=== PATIENT | male | born 1965 | race Caucasian/White ===

== ENCOUNTER 2020-05-25 13:37 | Inpatient (IN) | payer OTHER ==
[2020-05-25] MEDS ORDERED: DEXAMETHASONE SOD PHOSPHATE 4 MG/1 ML VIAL IVPUSH ONE (14:01)
[2020-05-25] MEDS ORDERED: LACTATED RINGERS SOLUTION 1000 ML INFUS.BAG IV STA (14:01)
[2020-05-25] MEDS ORDERED: ACETAMINOPHEN 1000 MG/100 ML VIAL (NON FORMULARY) IVPB ONE (14:23)
[2020-05-25] MEDS ORDERED: ACETAMINOPHEN INJECTION 100 ML IVPB ONE (14:29)
[2020-05-25 15:01] LABS: VENOUS BASE EXCESS 0.4 mmol/L (-2-2); VENOUS O2 SATURATION 92.2 % (70-80); VENOUS PCO2 27.6 mmHg (38-52); VENOUS PH 7.513 (7.310-7.410)
[2020-05-25 15:02] LABS: BASO % 0.7 % (0-2.0); EOS % 0.3 % (0-4.5); HEMATOCRIT 43.5 % (35.4-49); HEMOGLOBIN 15.7 GM/dL (11.7-16.9); LYMPH % 2.4 % (8-40); MCH 30.6 pg (25.7-33.7); MCHC 36.1 g/dl (32.0-35.9); MEAN CELL VOLUME 84.8 fl (80-96); MEAN PLT VOLUME 8.1 fl (7.5-11.1); MONO % 1.7 % (3.8-10.2); NEUT % 94.9 % (42.8-82.8); PLATELET COUNT 363 K/MM3 (134-434); RBC 5.12 M/mm3 (4.00-5.60); RDW 13.1 % (11.9-15.9)
[2020-05-25 15:14] LABS: INR 1.34 (0.83-1.09); PROTHROMBIN TIME (PATIENT) 16.1 SEC (9.7-13.0)
[2020-05-25 15:17] LABS: ACTIVATED PTT 29.9 SECONDS (25.2-36.5)
[2020-05-25 15:20] LABS: CHLORIDE 94 mmol/L (98-107); SODIUM 130 mmol/L (136-145)
[2020-05-25 15:22] LABS: CALCIUM 8.4 mg/dL (8.5-10.1)
[2020-05-25 15:23] LABS: ALBUMIN 2.4 g/dl (3.4-5.0); ANION GAP 12 MMOL/L (8-16); BLOOD UREA NITROGEN 8.5 mg/dL (7-18); CO2 24 mmol/L (21-32); GLUCOSE,RANDOM 180 mg/dL (74-106)
[2020-05-25 15:25] LABS: BILIRUBIN,DIRECT 0.8 mg/dL (0.0-0.2)
[2020-05-25 15:26] LABS: CREATININE 0.8 mg/dL (0.55-1.3); SGOT/AST 147 U/L (15-37); SGPT/ALT 83 U/L (13-61)
[2020-05-25 15:27] LABS: BILIRUBIN,TOTAL 1.5 mg/dL (0.2-1)
[2020-05-25 15:29] LABS: ALK PHOS 153 U/L (45-117)
[2020-05-25] MEDS ORDERED: ENOXAPARIN NA (PORCINE) 80 MG/0.8 ML DISP.SYRIN SQ ONE ×2 (15:35→15:43)
[2020-05-25] MEDS ORDERED: AZITHROMYCIN IVPB 500 MG in DEXTROSE 5%-WATER - 250 ML IVPB ONE (15:43)
[2020-05-25] MEDS ORDERED: CEFTRIAXONE 1 GM in DEXTROSE 5%-WATER - 50 ML IVPB ONE (15:43)
[2020-05-25 15:44] LABS: LDH 1202 U/L (87-246)
[2020-05-25 15:44] LABS: LACTIC ACID 3.4 mmol/L (0.4-2.0)
[2020-05-25] MEDS: LACTATED RINGERS SOLUTION 1,000 ML/1,000 ML INFUS.BAG IV SCH (15:50)
[2020-05-25 16:06] LABS: ANISOCYTOSIS 0; MACROCYTOSIS 0; OVALOCYTE 1+; PLATELET ESTIMATE NORMAL
[2020-05-25] MEDS ORDERED: CEFTRIAXONE 1 GM/50 ML BAG ONE (16:27)
[2020-05-25] MEDS ORDERED: AZITHROMYCIN IVPB 500 MG/250 ML BAG IVPB ONE (16:27)
[2020-05-25] MEDS ORDERED: ONDANSETRON 4 MG/2 ML VIAL IVPUSH PRN (17:53)
[2020-05-25] MEDS: ASCORBIC ACID 500 MG TABLET (FP) PO SCH (21:22)
[2020-05-25] MEDS: ZINC SULFATE 220 MG CAPSULE (FP) PO SCH (21:22)
[2020-05-25 21:29] LABS: EPI CELLS 19 /uL (0-25.1); HYALINE CASTS 0 /uL (0-3.1); PH,URINE 6.5 (5.0-8.0); URINE APPEARANCE CLEAR; URINE BACTERIA 119 /uL (0-1359); URINE BILIRUBIN NEGATIVE (NEGATIVE); URINE COLOR YELLOW; URINE GLUCOSE (UA) 1+ (NEGATIVE); URINE KETONE TRACE (NEGATIVE); URINE LEUK ESTERASE NEGATIVE (NEGATIVE); URINE NITRITE NEGATIVE (NEGATIVE); URINE PROTEIN 1+ (NEGATIVE); URINE RBC 14 /uL (0-23.9); URINE WBC 5 /uL (0-25.8)
[2020-05-26] MEDS: LACTATED RINGERS SOLUTION 1,000 ML/1,000 ML INFUS.BAG IV SCH ×2 (04:49→21:49)
[2020-05-26 06:54] LABS: HEMATOCRIT 35.8 % (35.4-49); HEMOGLOBIN 12.9 GM/dL (11.7-16.9); MCH 30.4 pg (25.7-33.7); MEAN CELL VOLUME 84.4 fl (80-96); MEAN PLT VOLUME 8.1 fl (7.5-11.1); PLATELET COUNT 317 K/MM3 (134-434); RBC 4.24 M/mm3 (4.00-5.60); WHITE BLOOD COUNT 9.1 K/mm3 (4.0-10.0)
[2020-05-26 07:20] LABS: BLOOD UREA NITROGEN 11.7 mg/dL (7-18)
[2020-05-26 07:22] LABS: CREATININE 0.5 mg/dL (0.55-1.3)
[2020-05-26] MEDS ORDERED: DEXTROSE 5%-WATER - 50 ML IVPB ONE (09:32)
[2020-05-26] MEDS ORDERED: cefTRIAXone SODIUM 1 GM VIAL ONE (09:32)
[2020-05-26] MEDS: CHOLECALCIFEROL (VIT D3) 1,000 UNIT (25 MCG) TABLET PO SCH (09:35)
[2020-05-26] MEDS: ASCORBIC ACID 500 MG TABLET (FP) PO SCH ×2 (09:35→21:48)
[2020-05-26] MEDS: ZINC SULFATE 220 MG CAPSULE (FP) PO SCH ×2 (09:35→21:48)
[2020-05-26] MEDS: CEFTRIAXONE 1 GM in DEXTROSE 5%-WATER - 50 ML IVPB SCH (09:36)
[2020-05-26] MEDS ORDERED: ENOXAPARIN NA (PORCINE) 80 MG/0.8 ML DISP.SYRIN SQ SCH (10:00)
[2020-05-26] MEDS ORDERED: ASCORBIC ACID 500 MG TABLET (FP) PO SCH (10:00)
[2020-05-26] MEDS ORDERED: AZITHROMYCIN IVPB 500 MG/250 ML BAG IVPB SCH (10:00)
[2020-05-26] MEDS ORDERED: MELATONIN 5 MG TABLETS PO PRN (10:17)
[2020-05-26 11:54] LABS: LACTIC ACID 2.7 mmol/L (0.4-2.0)
[2020-05-26] MEDS: DEXAMETHASONE SOD PHOSPHATE 4 MG/1 ML VIAL IVPUSH SCH (12:42)
[2020-05-26] MEDS ORDERED: TOCILIZUMAB (ACTEMRA) 200 MG/10 ML VIAL IVPB ONE (12:45)
[2020-05-26] MEDS ORDERED: TOCILIZUMAB 700 MG in SODIUM CHLORIDE 65 ML IVPB ONE (13:30)
[2020-05-26] MEDS: ENOXAPARIN NA (PORCINE) 100 MG/1 ML DISP.SYRIN SQ SCH (21:48)
[2020-05-27] MEDS: LACTATED RINGERS SOLUTION 1,000 ML/1,000 ML INFUS.BAG IV SCH (05:28)
[2020-05-27 08:09] LABS: CALCIUM 7.7 mg/dL (8.5-10.1)
[2020-05-27 08:10] LABS: MAGNESIUM 1.9 mg/dL (1.8-2.4)
[2020-05-27 08:12] LABS: CREATININE 0.5 mg/dL (0.55-1.3)
[2020-05-27 08:14] LABS: BILIRUBIN,TOTAL 0.6 mg/dL (0.2-1); TOT PROT 5.3 g/dl (6.4-8.2)
[2020-05-27 08:18] LABS: BASO % 0.3 % (0-2.0); EOS % 0.1 % (0-4.5); HEMATOCRIT 34.8 % (35.4-49); HEMOGLOBIN 12.6 GM/dL (11.7-16.9); LYMPH % 4.7 % (8-40); MCH 30.5 pg (25.7-33.7); MCHC 36.3 g/dl (32.0-35.9); MEAN PLT VOLUME 8.1 fl (7.5-11.1); MONO % 1.4 % (3.8-10.2); NEUT % 93.5 % (42.8-82.8); PLATELET COUNT 346 K/MM3 (134-434); RBC 4.15 M/mm3 (4.00-5.60); RDW 13.1 % (11.9-15.9); WHITE BLOOD COUNT 7.2 K/mm3 (4.0-10.0)
[2020-05-27 08:31] LABS: ALBUMIN 1.8 g/dl (3.4-5.0)
[2020-05-27] MEDS ORDERED: DEXTROSE 5%-WATER - 50 ML IVPB ONE (08:53)
[2020-05-27] MEDS ORDERED: cefTRIAXone SODIUM 1 GM VIAL ONE (08:53)
[2020-05-27] MEDS: CEFTRIAXONE 1 GM in DEXTROSE 5%-WATER - 50 ML IVPB SCH (09:00)
[2020-05-27] MEDS: ZINC SULFATE 220 MG CAPSULE (FP) PO SCH ×2 (09:01→21:25)
[2020-05-27] MEDS: CHOLECALCIFEROL (VIT D3) 1,000 UNIT (25 MCG) TABLET PO SCH (09:01)
[2020-05-27] MEDS: DEXAMETHASONE SOD PHOSPHATE 4 MG/1 ML VIAL IVPUSH SCH (09:01)
[2020-05-27] MEDS: ASCORBIC ACID 500 MG TABLET (FP) PO SCH ×2 (09:01→21:25)
[2020-05-27] MEDS: ENOXAPARIN NA (PORCINE) 100 MG/1 ML DISP.SYRIN SQ SCH ×2 (09:02→21:25)
[2020-05-27 09:35] LABS: ANISOCYTOSIS 2+; MACROCYTOSIS 0; PLATELET ESTIMATE NORMAL
[2020-05-27 12:34] LABS: LACTIC ACID 2.1 mmol/L (0.4-2.0)
[2020-05-27] MEDS: INSULIN SLIDING SCALE (NOVOLOG) 1 VIAL SQ SCH (21:25)
[2020-05-27] MEDS ORDERED: MELATONIN 5 MG TABLETS PO ONE (23:20)
[2020-05-28] MEDS: INSULIN SLIDING SCALE (NOVOLOG) 1 VIAL SQ SCH ×4 (06:42→21:14)
[2020-05-28] MEDS: ENOXAPARIN NA (PORCINE) 100 MG/1 ML DISP.SYRIN SQ SCH ×2 (09:00→21:08)
[2020-05-28] MEDS: DEXAMETHASONE SOD PHOSPHATE 4 MG/1 ML VIAL IVPUSH SCH (09:00)
[2020-05-28 09:13] LABS: BASO % 0.1 % (0-2.0); EOS % 4.3 % (0-4.5); HEMATOCRIT 41.8 % (35.4-49); HEMOGLOBIN 14.9 GM/dL (11.7-16.9); LYMPH % 5.6 % (8-40); MCH 30.5 pg (25.7-33.7); MCHC 35.7 g/dl (32.0-35.9); MEAN CELL VOLUME 85.4 fl (80-96); MEAN PLT VOLUME 7.6 fl (7.5-11.1); MONO % 0.9 % (3.8-10.2); NEUT % 89.1 % (42.8-82.8); PLATELET COUNT 380 K/MM3 (134-434); RDW 12.7 % (11.9-15.9); WHITE BLOOD COUNT 7.9 K/mm3 (4.0-10.0)
[2020-05-28 09:45] LABS: ALBUMIN 2.1 g/dl (3.4-5.0); CALCIUM 8.3 mg/dL (8.5-10.1); MAGNESIUM 1.7 mg/dL (1.8-2.4)
[2020-05-28 09:46] LABS: BLOOD UREA NITROGEN 8.8 mg/dL (7-18)
[2020-05-28 09:48] LABS: CREATININE 0.5 mg/dL (0.55-1.3)
[2020-05-28] MEDS ORDERED: ALBUTEROL SO4 0.5 % INH SOLN 2.5 MG/0.5 ML VIAL.NEB. NEB ONE (09:48)
[2020-05-28 09:50] LABS: BILIRUBIN,TOTAL 0.6 mg/dL (0.2-1); TOT PROT 6.2 g/dl (6.4-8.2)
[2020-05-28] MEDS ORDERED: MAGNESIUM SULF 50% (8.12 MEQ/2 ML-1 GM VIAL) IVPB ONE (09:51)
[2020-05-28 09:55] LABS: LACTIC ACID 2.8 mmol/L (0.4-2.0)
[2020-05-28] MEDS: ZINC SULFATE 220 MG CAPSULE (FP) PO SCH (10:31)
[2020-05-28] MEDS: ASCORBIC ACID 500 MG TABLET (FP) PO SCH ×2 (10:31→21:27)
[2020-05-28] MEDS: CHOLECALCIFEROL (VIT D3) 1,000 UNIT (25 MCG) TABLET PO SCH (10:31)
[2020-05-28] MEDS ORDERED: MORPHINE SULFATE 2 MG/ML VIAL ONE (10:57)
[2020-05-28] MEDS ORDERED: cefTRIAXone SODIUM 1 GM VIAL ONE ×2 (11:10→11:27)
[2020-05-28] MEDS ORDERED: DEXTROSE 5%-WATER - 50 ML IVPB ONE ×2 (11:10→11:28)
[2020-05-28] MEDS: FAMOTIDINE 20 MG/50 ML IVPB 20 MG/50 ML MG IVPB SCH ×2 (11:23→21:08)
[2020-05-28] MEDS ORDERED: DEXAMETHASONE SOD PHOSPHATE 4 MG/1 ML VIAL IVPUSH ONE (11:30)
[2020-05-28] MEDS ORDERED: MORPHINE SULFATE 2 MG/ML VIAL IVPUSH ONE (11:30)
[2020-05-28] MEDS: CEFTRIAXONE 1 GM in DEXTROSE 5%-WATER - 50 ML IVPB SCH (11:31)
[2020-05-28] MEDS: BUDESONIDE 0.5 MG/2 ML INH SUSP VIAL NEB SCH ×2 (12:57→20:45)
[2020-05-28] MEDS: ALBUTEROL SO4 2.5/IPRATROPIUM 0.5 INH SOL 3 ML VIAL.NEB. NEB SCH ×4 (12:58→20:45)
[2020-05-28] MEDS ORDERED: AMINO ACIDS 4.25%/D5W 1,000 ML IV SCH (16:30)
[2020-05-28] MEDS: DEXMEDETOMIDINE IN 0.9 % NACL 400 MCG/100 ML VIAL IVPB SCH (17:06)
[2020-05-28 18:23] LABS: ARTERIAL BLD GAS O2 SATURATION 94.8 mmHg (95-98); ARTERIAL BLOOD GAS PO2 71.2 mmHg (80-100); ARTERIAL BLOOD GAS pH 7.423 (7.350-7.450)
[2020-05-28 18:24] LABS: ALLENS TEST POSITIVE
[2020-05-28 18:25] LABS: VENT MODE S/T; VENT RATE 22
[2020-05-29] MEDS: DEXMEDETOMIDINE IN 0.9 % NACL 400 MCG/100 ML VIAL IVPB SCH ×2 (04:38→15:45)
[2020-05-29] MEDS: INSULIN SLIDING SCALE (NOVOLOG) 1 VIAL SQ SCH ×4 (06:12→21:30)
[2020-05-29 07:23] LABS: HEMATOCRIT 41.6 % (35.4-49); HEMOGLOBIN 14.5 GM/dL (11.7-16.9); MCHC 34.9 g/dl (32.0-35.9); MEAN CELL VOLUME 85.9 fl (80-96); MEAN PLT VOLUME 8.2 fl (7.5-11.1); PLATELET COUNT 278 K/MM3 (134-434); RBC 4.84 M/mm3 (4.00-5.60); RDW 13.2 % (11.9-15.9); WHITE BLOOD COUNT 5.5 K/mm3 (4.0-10.0)
[2020-05-29 07:33] LABS: PHOSPHOROUS 2.6 mg/dL (2.5-4.9)
[2020-05-29 07:37] LABS: CALCIUM 8.3 mg/dL (8.5-10.1)
[2020-05-29 07:38] LABS: ALBUMIN 2.1 g/dl (3.4-5.0); BLOOD UREA NITROGEN 14.6 mg/dL (7-18); MAGNESIUM 2.2 mg/dL (1.8-2.4)
[2020-05-29 07:41] LABS: CREATININE 0.6 mg/dL (0.55-1.3)
[2020-05-29 07:43] LABS: BILIRUBIN,TOTAL 0.4 mg/dL (0.2-1); TOT PROT 5.7 g/dl (6.4-8.2)
[2020-05-29] MEDS: ALBUTEROL SO4 2.5/IPRATROPIUM 0.5 INH SOL 3 ML VIAL.NEB. NEB SCH ×5 (08:00→23:51)
[2020-05-29] MEDS: BUDESONIDE 0.5 MG/2 ML INH SUSP VIAL NEB SCH ×2 (08:00→20:30)
[2020-05-29] MEDS ORDERED: cefTRIAXone SODIUM 1 GM VIAL ONE (08:56)
[2020-05-29] MEDS ORDERED: DEXTROSE 5%-WATER - 50 ML IVPB ONE (08:57)
[2020-05-29] MEDS: CEFTRIAXONE 1 GM in DEXTROSE 5%-WATER - 50 ML IVPB SCH (09:10)
[2020-05-29] MEDS: CHOLECALCIFEROL (VIT D3) 1,000 UNIT (25 MCG) TABLET PO SCH (09:10)
[2020-05-29] MEDS: ASCORBIC ACID 500 MG TABLET (FP) PO SCH ×2 (09:10→21:30)
[2020-05-29] MEDS: DEXAMETHASONE SOD PHOSPHATE 4 MG/1 ML VIAL IVPUSH SCH (09:10)
[2020-05-29] MEDS: FAMOTIDINE 20 MG/50 ML IVPB 20 MG/50 ML MG IVPB SCH ×2 (09:10→21:30)
[2020-05-29] MEDS: ENOXAPARIN NA (PORCINE) 100 MG/1 ML DISP.SYRIN SQ SCH ×2 (09:10→21:30)
[2020-05-29 10:27] LABS: PLATELET ESTIMATE NORMAL
[2020-05-29] MEDS ORDERED: MULTIVIT INJECTION ADULT 10 ML in AMINO ACIDS 4.25%/D5W 1,000 ML IV SCH (13:01)
[2020-05-29] MEDS ORDERED: PT OWN MED DRAWER 7, Y5N ONE ×2 (15:24→21:11)
[2020-05-29] MEDS: AMINO ACIDS 4.25%/D5W 1,000 ML IV SCH (15:43)
[2020-05-29] MEDS: MULTIVIT INJ. ADULT COMBO WITH VIT K 1 COMBO 10 ML VIAL IV SCH (15:44)
[2020-05-30] MEDS: ALBUTEROL SO4 2.5/IPRATROPIUM 0.5 INH SOL 3 ML VIAL.NEB. NEB SCH ×5 (04:30→20:43)
[2020-05-30] MEDS: INSULIN SLIDING SCALE (NOVOLOG) 1 VIAL SQ SCH ×4 (06:15→23:46)
[2020-05-30 07:11] LABS: BASO % 0.1 % (0-2.0); EOS % 5.8 % (0-4.5); HEMATOCRIT 41.9 % (35.4-49); HEMOGLOBIN 14.8 GM/dL (11.7-16.9); LYMPH % 6.7 % (8-40); MCH 30.6 pg (25.7-33.7); MCHC 35.3 g/dl (32.0-35.9); MEAN CELL VOLUME 86.8 fl (80-96); MEAN PLT VOLUME 8.8 fl (7.5-11.1); MONO % 1.8 % (3.8-10.2); NEUT % 85.6 % (42.8-82.8); PLATELET COUNT 246 K/MM3 (134-434); RBC 4.83 M/mm3 (4.00-5.60); RDW 13.3 % (11.9-15.9); WHITE BLOOD COUNT 6.5 K/mm3 (4.0-10.0)
[2020-05-30] MEDS: BUDESONIDE 0.5 MG/2 ML INH SUSP VIAL NEB SCH ×2 (07:20→20:43)
[2020-05-30 07:29] LABS: BLOOD UREA NITROGEN 16.5 mg/dL (7-18); CALCIUM 8.2 mg/dL (8.5-10.1); MAGNESIUM 1.7 mg/dL (1.8-2.4)
[2020-05-30 07:30] LABS: ALBUMIN 2.1 g/dl (3.4-5.0)
[2020-05-30 07:33] LABS: CREATININE 0.5 mg/dL (0.55-1.3)
[2020-05-30 07:34] LABS: BILIRUBIN,TOTAL 0.4 mg/dL (0.2-1); TOT PROT 5.7 g/dl (6.4-8.2)
[2020-05-30 07:36] LABS: PHOSPHOROUS 2.6 mg/dL (2.5-4.9)
[2020-05-30] MEDS ORDERED: PT OWN MED DRAWER 7, Y5N ONE ×3 (08:58→21:01)
[2020-05-30] MEDS ORDERED: cefTRIAXone SODIUM 1 GM VIAL ONE (08:59)
[2020-05-30] MEDS ORDERED: DEXTROSE 5%-WATER - 50 ML IVPB ONE (08:59)
[2020-05-30] MEDS: ENOXAPARIN NA (PORCINE) 100 MG/1 ML DISP.SYRIN SQ SCH ×2 (09:20→23:46)
[2020-05-30] MEDS: CEFTRIAXONE 1 GM in DEXTROSE 5%-WATER - 50 ML IVPB SCH (09:21)
[2020-05-30] MEDS: FAMOTIDINE 20 MG/50 ML IVPB 20 MG/50 ML MG IVPB SCH ×2 (09:22→23:47)
[2020-05-30] MEDS: CHOLECALCIFEROL (VIT D3) 1,000 UNIT (25 MCG) TABLET PO SCH (09:23)
[2020-05-30] MEDS: ASCORBIC ACID 500 MG TABLET (FP) PO SCH ×2 (09:23→23:47)
[2020-05-30] MEDS: DEXAMETHASONE SOD PHOSPHATE 4 MG/1 ML VIAL IVPUSH SCH (09:23)
[2020-05-30] MEDS: AMINO ACIDS 4.25%/D5W 1,000 ML IV SCH (16:22)
[2020-05-30] MEDS: MULTIVIT INJ. ADULT COMBO WITH VIT K 1 COMBO 10 ML VIAL IV SCH (16:22)
[2020-05-30] MEDS: DEXMEDETOMIDINE IN 0.9 % NACL 400 MCG/100 ML VIAL IVPB SCH (16:22)
[2020-05-30] MEDS: MORPHINE SULFATE 2 MG/ML VIAL IVPUSH PRN (23:47)
[2020-05-31] MEDS ORDERED: VECURONIUM BROMIDE 10 MG/10 ML VIAL ONE (02:30)
[2020-05-31] MEDS ORDERED: INSULIN (NOVOLOG) ASPART 100 UNITS/ML 10ML VIAL ONE (03:06)
[2020-05-31] MEDS: INSULIN SLIDING SCALE (NOVOLOG) 1 VIAL SQ SCH ×4 (06:46→22:07)
[2020-05-31] MEDS: MORPHINE SULFATE 2 MG/ML VIAL IVPUSH PRN (07:01)
[2020-05-31] MEDS: BUDESONIDE 0.5 MG/2 ML INH SUSP VIAL NEB SCH ×2 (07:40→20:00)
[2020-05-31] MEDS: ALBUTEROL SO4 2.5/IPRATROPIUM 0.5 INH SOL 3 ML VIAL.NEB. NEB SCH ×2 (07:40→20:00)
[2020-05-31 08:10] LABS: BASO % 0.9 % (0-2.0); HEMOGLOBIN 15.1 GM/dL (11.7-16.9); LYMPH % 3.8 % (8-40); MCH 30.7 pg (25.7-33.7); MCHC 35.2 g/dl (32.0-35.9); MEAN CELL VOLUME 87.4 fl (80-96); MONO % 1.3 % (3.8-10.2); PLATELET COUNT 216 K/MM3 (134-434); RBC 4.92 M/mm3 (4.00-5.60); RDW 13.4 % (11.9-15.9); WHITE BLOOD COUNT 7.9 K/mm3 (4.0-10.0)
[2020-05-31 08:21] LABS: ALBUMIN 2.2 g/dl (3.4-5.0); BILIRUBIN,TOTAL 0.4 mg/dL (0.2-1); BLOOD UREA NITROGEN 19.4 mg/dL (7-18); CALCIUM 8.3 mg/dL (8.5-10.1)
[2020-05-31 08:22] LABS: MAGNESIUM 1.9 mg/dL (1.8-2.4); TOT PROT 5.6 g/dl (6.4-8.2)
[2020-05-31 08:23] LABS: CREATININE 0.5 mg/dL (0.55-1.3)
[2020-05-31 08:24] LABS: PHOSPHOROUS 2.4 mg/dL (2.5-4.9)
[2020-05-31 08:51] LABS: ARTERIAL BLD GAS O2 SATURATION 84.2 mmHg (95-98); ARTERIAL BLOOD GAS BASE EXCESS -1.3 mmol/L (-2-2); ARTERIAL BLOOD GAS PO2 48.2 mmHg (80-100); ARTERIAL BLOOD GAS pH 7.401 (7.350-7.450)
[2020-05-31 09:03] LABS: ALLENS TEST POSITIVE
[2020-05-31 09:04] LABS: VENT MODE ST; VENT RATE 22
[2020-05-31] MEDS: ENOXAPARIN NA (PORCINE) 100 MG/1 ML DISP.SYRIN SQ SCH ×2 (09:51→21:35)
[2020-05-31] MEDS: ASCORBIC ACID 500 MG TABLET (FP) PO SCH ×2 (09:52→21:33)
[2020-05-31] MEDS: CHOLECALCIFEROL (VIT D3) 1,000 UNIT (25 MCG) TABLET PO SCH (09:52)
[2020-05-31] MEDS: FAMOTIDINE 20 MG/50 ML IVPB 20 MG/50 ML MG IVPB SCH ×2 (09:52→21:33)
[2020-05-31] MEDS: DEXAMETHASONE SOD PHOSPHATE 4 MG/1 ML VIAL IVPUSH SCH (09:52)
[2020-05-31 11:37] LABS: ANISOCYTOSIS 0; MACROCYTOSIS 0; PLATELET ESTIMATE NORMAL
[2020-05-31] MEDS ORDERED: PT OWN MED DRAWER 7, Y5N ONE ×2 (13:51→15:00)
[2020-05-31] MEDS: AMINO ACIDS 4.25%/D5W 1,000 ML IV SCH (15:05)
[2020-05-31] MEDS: DEXMEDETOMIDINE IN 0.9 % NACL 400 MCG/100 ML VIAL IVPB SCH (15:06)
[2020-05-31] MEDS: MULTIVIT INJ. ADULT COMBO WITH VIT K 1 COMBO 10 ML VIAL IV SCH (15:06)
[2020-05-31] MEDS ORDERED: guaiFENesin/D-M SUGAR-FREE/ACLHOL-FREE 118 ML BOTTLE PO PRN (21:25)
[2020-05-31] MEDS ORDERED: BENZOCAINE/MENTH/CETYLPYRD CL 1 EACH LOZENGE MM PRN (21:25)
[2020-05-31] MEDS: ZINC SULFATE 220 MG CAPSULE (FP) PO SCH (21:34)
[2020-05-31] MEDS: ACETAMINOPHEN 325 MG TABLET (FP) PO PRN (21:34)
[2020-06-01] MEDS: ALBUTEROL SO4 2.5/IPRATROPIUM 0.5 INH SOL 3 ML VIAL.NEB. NEB SCH ×3 (00:30→23:40)
[2020-06-01] MEDS: INSULIN SLIDING SCALE (NOVOLOG) 1 VIAL SQ SCH ×4 (06:38→21:14)
[2020-06-01] MEDS ORDERED: INSULIN SLIDING SCALE (NOVOLOG) 1 VIAL SQ SCH (07:00)
[2020-06-01] MEDS: DEXAMETHASONE SOD PHOSPHATE 4 MG/1 ML VIAL IVPUSH SCH (09:37)
[2020-06-01] MEDS: ENOXAPARIN NA (PORCINE) 100 MG/1 ML DISP.SYRIN SQ SCH ×2 (09:37→21:14)
[2020-06-01] MEDS: ZINC SULFATE 220 MG CAPSULE (FP) PO SCH ×2 (09:38→21:14)
[2020-06-01] MEDS: ASCORBIC ACID 500 MG TABLET (FP) PO SCH ×2 (09:39→21:14)
[2020-06-01] MEDS: FAMOTIDINE 20 MG/50 ML IVPB 20 MG/50 ML MG IVPB SCH ×2 (09:39→21:14)
[2020-06-01] MEDS: CHOLECALCIFEROL (VIT D3) 1,000 UNIT (25 MCG) TABLET PO SCH (09:39)
[2020-06-01] MEDS ORDERED: morphine SULFATE 4 MG/ML VIAL IVPUSH PRN (11:23)
[2020-06-01] MEDS: DEXMEDETOMIDINE IN 0.9 % NACL 400 MCG/100 ML VIAL IVPB SCH ×2 (13:00→17:56)
[2020-06-01] MEDS ORDERED: KETAMINE HCL 200 MG/20 ML VIAL IVPUSH ONE (13:58)
[2020-06-01] MEDS ORDERED: RAPID SEQUENCE INTUBATION KIT NR ONE (13:58)
[2020-06-01] MEDS ORDERED: ROCURONIUM BROMIDE 100 MG/10 ML VIAL ONE (14:00)
[2020-06-01] MEDS ORDERED: MIDAZOLAM 100 MG/100 ML MG IVPB ONE ×2 (14:04→21:19)
[2020-06-01] MEDS ORDERED: FENTANYL NS IVPB 500 MCG/100 ML BAG IVPB ONE (14:04)
[2020-06-01] MEDS ORDERED: MIDAZOLAM HCL 5 MG/1 ML Single Dose Vial ONE (14:04)
[2020-06-01] MEDS ORDERED: PHENYLEPHRINE HCL 10 MG/1 ML SINGLE DOSE VIAL ONE (14:05)
[2020-06-01] MEDS ORDERED: MIDAZOLAM HCL 2 MG/2 ML SINGLE DOSE VIAL ONE ×2 (14:08→15:19)
[2020-06-01] MEDS ORDERED: ROCURONIUM BROMIDE 50 MG/5 ML VIAL IV ONE (14:15)
[2020-06-01] MEDS ORDERED: SUCCINYLCHOLINE CHLORIDE 200 MG/10 ML VIAL IVPUSH ONE (14:15)
[2020-06-01] MEDS: FENTANYL IVPB 500 MCG/100 ML BAG IVPB SCH (15:00)
[2020-06-01] MEDS: MIDAZOLAM 100 MG in SODIUM CHLORIDE 100 ML IVPB SCH ×2 (15:00→23:00)
[2020-06-01 16:17] LABS: ARTERIAL BLD GAS O2 SATURATION 90.1 mmHg (95-98); ARTERIAL BLOOD GAS BASE EXCESS -2.4 mmol/L (-2-2); ARTERIAL BLOOD GAS PO2 62.1 mmHg (80-100)
[2020-06-01 16:18] LABS: ALLENS TEST POSITIVE; VENT MODE PC
[2020-06-01 16:19] LABS: VENT RATE 26
[2020-06-01] MEDS ORDERED: NOREPINEPHRINE BITARTRATE 4 MG/4 ML ML IV ONE (16:56)
[2020-06-01] MEDS: NOREPINEPHRINE NS PREMIX 8,000 MCG/500 ML BAG IVPB SCH (17:10)
[2020-06-01] MEDS ORDERED: MIDAZOLAM HCL 10 MG/10 ML VIAL IVPUSH ONE (17:32)
[2020-06-01] MEDS: AMINO ACIDS 4.25%/D5W 1,000 ML IV SCH (17:55)
[2020-06-01] MEDS: MULTIVIT INJ. ADULT COMBO WITH VIT K 1 COMBO 10 ML VIAL IV SCH (17:55)
[2020-06-01] MEDS: VECURONIUM BROMIDE 100 MG/100 ML BAG IVPB SCH (17:57)
[2020-06-01] MEDS: VANCOMYCIN/WATER BAGS 1,250 MG/250 ML BAG IVPB SCH (20:30)
[2020-06-01] MEDS ORDERED: DEXTROSE 5%-WATER 100 ML IVPB ONE (21:20)
[2020-06-01] MEDS: PIPERACILLIN/TAZOB 4.5 GM 4.5 GM in DEXTROSE 5%-WATER 100 ML IVPB SCH (21:20)
[2020-06-01] MEDS ORDERED: PIPERACILLIN/TAZOBACTAM 4.5 GM VIAL IVPB ONE (21:20)
[2020-06-01] MEDS: BUDESONIDE 0.5 MG/2 ML INH SUSP VIAL NEB SCH (23:40)
[2020-06-02] MEDS: FENTANYL IVPB 500 MCG/100 ML BAG IVPB SCH ×3 (01:00→16:28)
[2020-06-02] MEDS ORDERED: DEXTROSE 5%-WATER 100 ML IVPB ONE ×3 (01:05→17:20)
[2020-06-02] MEDS ORDERED: PIPERACILLIN/TAZOBACTAM 4.5 GM VIAL IVPB ONE ×3 (01:05→17:20)
[2020-06-02] MEDS: PIPERACILLIN/TAZOB 4.5 GM 4.5 GM in DEXTROSE 5%-WATER 100 ML IVPB SCH ×3 (01:23→17:29)
[2020-06-02] MEDS: ALBUTEROL SO4 2.5/IPRATROPIUM 0.5 INH SOL 3 ML VIAL.NEB. NEB SCH (03:30)
[2020-06-02] MEDS: INSULIN SLIDING SCALE (NOVOLOG) 1 VIAL SQ SCH ×4 (06:14→22:53)
[2020-06-02 06:26] LABS: ARTERIAL BLD GAS O2 SATURATION 95.1 mmHg (95-98); ARTERIAL BLOOD GAS BASE EXCESS -0.9 mmol/L (-2-2); ARTERIAL BLOOD GAS PO2 81.1 mmHg (80-100); ARTERIAL BLOOD GAS pH 7.329 (7.350-7.450)
[2020-06-02 06:33] LABS: ALLENS TEST POSITIVE
[2020-06-02 06:34] LABS: VENT MODE PC; VENT RATE 26
[2020-06-02 06:56] LABS: HEMATOCRIT 43.5 % (35.4-49); MCH 30.5 pg (25.7-33.7); MCHC 34.5 g/dl (32.0-35.9); MEAN CELL VOLUME 88.5 fl (80-96); MEAN PLT VOLUME 8.8 fl (7.5-11.1); PLATELET COUNT 173 K/MM3 (134-434); RBC 4.92 M/mm3 (4.00-5.60); RDW 13.8 % (11.9-15.9); WHITE BLOOD COUNT 9.1 K/mm3 (4.0-10.0)
[2020-06-02 07:14] LABS: CALCIUM 8.1 mg/dL (8.5-10.1)
[2020-06-02 07:15] LABS: ALBUMIN 2.2 g/dl (3.4-5.0); BLOOD UREA NITROGEN 15.6 mg/dL (7-18); MAGNESIUM 1.8 mg/dL (1.8-2.4)
[2020-06-02 07:18] LABS: CREATININE 0.5 mg/dL (0.55-1.3); PHOSPHOROUS 2.7 mg/dL (2.5-4.9)
[2020-06-02 07:19] LABS: BILIRUBIN,TOTAL 0.7 mg/dL (0.2-1); TOT PROT 5.5 g/dl (6.4-8.2)
[2020-06-02 07:23] LABS: N-TERMINAL BNP 228.4 pg/ml (5-125)
[2020-06-02] MEDS ORDERED: PT OWN MED DRAWER 7, Y5N ONE ×2 (08:26→15:31)
[2020-06-02] MEDS: VECURONIUM BROMIDE 100 MG/100 ML BAG IVPB SCH ×2 (09:24→16:29)
[2020-06-02] MEDS: VANCOMYCIN/WATER BAGS 1,250 MG/250 ML BAG IVPB SCH ×2 (09:24→20:00)
[2020-06-02] MEDS: DEXAMETHASONE SOD PHOSPHATE 4 MG/1 ML VIAL IVPUSH SCH (09:32)
[2020-06-02] MEDS: FAMOTIDINE 20 MG/50 ML IVPB 20 MG/50 ML MG IVPB SCH ×2 (09:32→21:25)
[2020-06-02] MEDS: ENOXAPARIN NA (PORCINE) 100 MG/1 ML DISP.SYRIN SQ SCH ×2 (09:34→21:25)
[2020-06-02] MEDS: CHOLECALCIFEROL (VIT D3) 1,000 UNIT (25 MCG) TABLET PO SCH (09:35)
[2020-06-02] MEDS: ZINC SULFATE 220 MG CAPSULE (FP) PO SCH ×2 (09:35→21:26)
[2020-06-02] MEDS: ASCORBIC ACID 500 MG TABLET (FP) PO SCH ×2 (09:35→21:25)
[2020-06-02] MEDS ORDERED: MIDAZOLAM 100 MG/100 ML MG IVPB ONE ×2 (09:59→19:58)
[2020-06-02] MEDS: MIDAZOLAM 100 MG in SODIUM CHLORIDE 100 ML IVPB SCH ×2 (10:57→16:28)
[2020-06-02] MEDS: AMINO ACIDS 4.25%/D5W 1,000 ML IV SCH (17:26)
[2020-06-02] MEDS: MULTIVIT INJ. ADULT COMBO WITH VIT K 1 COMBO 10 ML VIAL IV SCH (17:27)
[2020-06-02] MEDS: NOREPINEPHRINE NS PREMIX 8,000 MCG/500 ML BAG IVPB SCH (17:29)
[2020-06-03] MEDS ORDERED: DEXTROSE 5%-WATER 100 ML IVPB ONE ×4 (00:20→23:37)
[2020-06-03] MEDS ORDERED: PIPERACILLIN/TAZOBACTAM 4.5 GM VIAL IVPB ONE ×4 (00:20→23:37)
[2020-06-03] MEDS: PIPERACILLIN/TAZOB 4.5 GM 4.5 GM in DEXTROSE 5%-WATER 100 ML IVPB SCH ×3 (01:27→18:10)
[2020-06-03] MEDS ORDERED: MIDAZOLAM 100 MG/100 ML MG IVPB ONE ×2 (05:05→16:51)
[2020-06-03] MEDS: INSULIN SLIDING SCALE (NOVOLOG) 1 VIAL SQ SCH ×4 (06:19→21:17)
[2020-06-03 07:28] LABS: ALBUMIN 2.1 g/dl (3.4-5.0); BLOOD UREA NITROGEN 12.5 mg/dL (7-18); MAGNESIUM 1.8 mg/dL (1.8-2.4)
[2020-06-03 07:31] LABS: CREATININE 0.4 mg/dL (0.55-1.3); PHOSPHOROUS 2.2 mg/dL (2.5-4.9)
[2020-06-03 07:32] LABS: BILIRUBIN,TOTAL 0.7 mg/dL (0.2-1)
[2020-06-03 07:33] LABS: TOT PROT 5.1 g/dl (6.4-8.2)
[2020-06-03] MEDS: VANCOMYCIN/WATER BAGS 1,250 MG/250 ML BAG IVPB SCH ×2 (07:46→21:10)
[2020-06-03] MEDS ORDERED: NAPH,MB-DB/K PH,MBDB POWDER PACKET PO ONE (07:59)
[2020-06-03] MEDS: DEXAMETHASONE SOD PHOSPHATE 4 MG/1 ML VIAL IVPUSH SCH (09:51)
[2020-06-03] MEDS: ASCORBIC ACID 500 MG TABLET (FP) PO SCH ×2 (09:53→21:11)
[2020-06-03] MEDS: ZINC SULFATE 220 MG CAPSULE (FP) PO SCH ×2 (09:53→21:11)
[2020-06-03] MEDS: CHOLECALCIFEROL (VIT D3) 1,000 UNIT (25 MCG) TABLET PO SCH (09:53)
[2020-06-03] MEDS: ENOXAPARIN NA (PORCINE) 100 MG/1 ML DISP.SYRIN SQ SCH ×2 (09:54→21:10)
[2020-06-03] MEDS: FAMOTIDINE 20 MG/50 ML IVPB 20 MG/50 ML MG IVPB SCH ×2 (09:54→21:10)
[2020-06-03 09:57] LABS: HEMATOCRIT 40.1 % (35.4-49); MCH 30.9 pg (25.7-33.7); MCHC 35.1 g/dl (32.0-35.9); MEAN CELL VOLUME 88.2 fl (80-96); MEAN PLT VOLUME 9.1 fl (7.5-11.1); PLATELET COUNT 151 K/MM3 (134-434); RBC 4.54 M/mm3 (4.00-5.60); RDW 13.7 % (11.9-15.9); WHITE BLOOD COUNT 8.5 K/mm3 (4.0-10.0)
[2020-06-03] MEDS ORDERED: AMINO ACIDS 4.25%/D5W 1,000 ML IV SCH (10:45)
[2020-06-03 12:48] LABS: ANISOCYTOSIS 0; MACROCYTOSIS 0; PLATELET ESTIMATE NORMAL
[2020-06-03] MEDS: MULTIVIT INJ. ADULT COMBO WITH VIT K 1 COMBO 10 ML VIAL IV SCH (13:51)
[2020-06-03] MEDS: FENTANYL IVPB 500 MCG/100 ML BAG IVPB SCH ×2 (14:34→20:30)
[2020-06-03] MEDS: MIDAZOLAM 100 MG in SODIUM CHLORIDE 100 ML IVPB SCH (14:36)
[2020-06-03] MEDS: VECURONIUM BROMIDE 100 MG/100 ML BAG IVPB SCH ×2 (15:39→22:00)
[2020-06-03] MEDS: NOREPINEPHRINE NS PREMIX 8,000 MCG/500 ML BAG IVPB SCH (16:21)
[2020-06-04] MEDS ORDERED: MIDAZOLAM 100 MG/100 ML MG IVPB ONE ×3 (00:49→23:57)
[2020-06-04] MEDS: FENTANYL IVPB 500 MCG/100 ML BAG IVPB SCH ×3 (01:01→22:30)
[2020-06-04] MEDS: PIPERACILLIN/TAZOB 4.5 GM 4.5 GM in DEXTROSE 5%-WATER 100 ML IVPB SCH ×3 (01:01→18:37)
[2020-06-04] MEDS: MIDAZOLAM 100 MG in SODIUM CHLORIDE 100 ML IVPB SCH ×2 (01:01→14:41)
[2020-06-04] MEDS: INSULIN SLIDING SCALE (NOVOLOG) 1 VIAL SQ SCH ×4 (06:00→22:05)
[2020-06-04 07:02] LABS: HEMATOCRIT 42.4 % (35.4-49); HEMOGLOBIN 14.9 GM/dL (11.7-16.9); MCH 31.1 pg (25.7-33.7); MCHC 35.2 g/dl (32.0-35.9); MEAN CELL VOLUME 88.3 fl (80-96); MEAN PLT VOLUME 9.6 fl (7.5-11.1); PLATELET COUNT 143 K/MM3 (134-434); RDW 13.4 % (11.9-15.9); WHITE BLOOD COUNT 9.8 K/mm3 (4.0-10.0)
[2020-06-04 07:28] LABS: ALBUMIN 2.2 g/dl (3.4-5.0); BLOOD UREA NITROGEN 13.6 mg/dL (7-18)
[2020-06-04 07:30] LABS: CREATININE 0.4 mg/dL (0.55-1.3)
[2020-06-04 07:31] LABS: BILIRUBIN,TOTAL 0.6 mg/dL (0.2-1); TOT PROT 5.4 g/dl (6.4-8.2)
[2020-06-04] MEDS ORDERED: PT OWN MED DRAWER 7, Y5N ONE ×3 (07:49→21:47)
[2020-06-04] MEDS: VANCOMYCIN/WATER BAGS 1,250 MG/250 ML BAG IVPB SCH ×2 (07:58→21:00)
[2020-06-04] MEDS ORDERED: PIPERACILLIN/TAZOBACTAM 4.5 GM VIAL IVPB ONE ×2 (09:19→17:42)
[2020-06-04] MEDS ORDERED: DEXTROSE 5%-WATER 100 ML IVPB ONE ×2 (09:19→17:42)
[2020-06-04] MEDS: ASCORBIC ACID 500 MG TABLET (FP) PO SCH ×2 (09:40→21:51)
[2020-06-04] MEDS: ZINC SULFATE 220 MG CAPSULE (FP) PO SCH ×2 (09:40→21:51)
[2020-06-04] MEDS: FAMOTIDINE 20 MG/50 ML IVPB 20 MG/50 ML MG IVPB SCH ×2 (09:40→21:52)
[2020-06-04] MEDS: DEXAMETHASONE SOD PHOSPHATE 4 MG/1 ML VIAL IVPUSH SCH (09:40)
[2020-06-04] MEDS: CHOLECALCIFEROL (VIT D3) 1,000 UNIT (25 MCG) TABLET PO SCH (09:40)
[2020-06-04] MEDS: ENOXAPARIN NA (PORCINE) 100 MG/1 ML DISP.SYRIN SQ SCH ×2 (09:41→21:51)
[2020-06-04] MEDS: VECURONIUM BROMIDE 100 MG/100 ML BAG IVPB SCH (16:50)
[2020-06-04] MEDS ORDERED: METOPROLOL TARTRATE 5 MG/5 ML VIAL IVPUSH PRN (17:22)
[2020-06-04] MEDS: NOREPINEPHRINE NS PREMIX 8,000 MCG/500 ML BAG IVPB SCH (18:37)
[2020-06-05] MEDS ORDERED: DEXTROSE 5%-WATER 100 ML IVPB ONE ×4 (00:47→20:50)
[2020-06-05] MEDS ORDERED: PIPERACILLIN/TAZOBACTAM 4.5 GM VIAL IVPB ONE ×4 (00:47→20:50)
[2020-06-05] MEDS: PIPERACILLIN/TAZOB 4.5 GM 4.5 GM in DEXTROSE 5%-WATER 100 ML IVPB SCH ×3 (01:02→18:04)
[2020-06-05] MEDS: METOPROLOL TARTRATE 5 MG/5 ML VIAL IVPUSH PRN ×3 (04:00→18:03)
[2020-06-05] MEDS: FENTANYL IVPB 500 MCG/100 ML BAG IVPB SCH ×5 (05:28→20:59)
[2020-06-05] MEDS: INSULIN SLIDING SCALE (NOVOLOG) 1 VIAL SQ SCH ×4 (06:15→21:55)
[2020-06-05] MEDS ORDERED: PT OWN MED DRAWER 7, Y5N ONE ×2 (07:44→10:01)
[2020-06-05] MEDS: VANCOMYCIN/WATER BAGS 1,250 MG/250 ML BAG IVPB SCH (07:46)
[2020-06-05 08:20] LABS: HEMATOCRIT 46.9 % (35.4-49); HEMOGLOBIN 15.8 GM/dL (11.7-16.9); MCH 30.4 pg (25.7-33.7); MCHC 33.6 g/dl (32.0-35.9); MEAN CELL VOLUME 90.4 fl (80-96); MEAN PLT VOLUME 9.9 fl (7.5-11.1); PLATELET COUNT 152 K/MM3 (134-434); RBC 5.19 M/mm3 (4.00-5.60); RDW 13.9 % (11.9-15.9); WHITE BLOOD COUNT 11.7 K/mm3 (4.0-10.0)
[2020-06-05 08:21] LABS: ALBUMIN 2.4 g/dl (3.4-5.0)
[2020-06-05 08:22] LABS: BLOOD UREA NITROGEN 13.8 mg/dL (7-18); CALCIUM 8.1 mg/dL (8.5-10.1)
[2020-06-05 08:24] LABS: CREATININE 0.4 mg/dL (0.55-1.3)
[2020-06-05 08:25] LABS: BILIRUBIN,TOTAL 0.6 mg/dL (0.2-1); TOT PROT 5.9 g/dl (6.4-8.2)
[2020-06-05] MEDS ORDERED: MIDAZOLAM 100 MG/100 ML MG IVPB ONE ×3 (09:11→23:23)
[2020-06-05] MEDS: DEXAMETHASONE SOD PHOSPHATE 4 MG/1 ML VIAL IVPUSH SCH (09:25)
[2020-06-05] MEDS: ENOXAPARIN NA (PORCINE) 100 MG/1 ML DISP.SYRIN SQ SCH ×2 (09:25→21:01)
[2020-06-05] MEDS: ASCORBIC ACID 500 MG TABLET (FP) PO SCH ×2 (09:26→21:01)
[2020-06-05] MEDS: CHOLECALCIFEROL (VIT D3) 1,000 UNIT (25 MCG) TABLET PO SCH (09:26)
[2020-06-05] MEDS: FAMOTIDINE 20 MG/50 ML IVPB 20 MG/50 ML MG IVPB SCH ×2 (09:26→21:01)
[2020-06-05] MEDS: ZINC SULFATE 220 MG CAPSULE (FP) PO SCH ×2 (09:26→21:01)
[2020-06-05] MEDS: VECURONIUM BROMIDE 100 MG/100 ML BAG IVPB SCH ×2 (10:10→17:10)
[2020-06-05] MEDS: MIDAZOLAM 100 MG in SODIUM CHLORIDE 100 ML IVPB SCH ×4 (10:48→20:59)
[2020-06-05 10:50] LABS: ARTERIAL BLD GAS O2 SATURATION 85.4 mmHg (95-98); ARTERIAL BLOOD GAS BASE EXCESS 7.7 mmol/L (-2-2); ARTERIAL BLOOD GAS PO2 53.6 mmHg (80-100); ARTERIAL BLOOD GAS pH 7.357 (7.350-7.450)
[2020-06-05 10:51] LABS: ALLENS TEST POSITIVE
[2020-06-05 10:52] LABS: VENT MODE PRESSURE CONTROL; VENT RATE 26
[2020-06-05] MEDS: NOREPINEPHRINE NS PREMIX 8,000 MCG/500 ML BAG IVPB SCH (18:04)
[2020-06-06] MEDS: PIPERACILLIN/TAZOB 4.5 GM 4.5 GM in DEXTROSE 5%-WATER 100 ML IVPB SCH ×3 (02:51→17:45)
[2020-06-06] MEDS ORDERED: DEXTROSE 5%-WATER 100 ML IVPB ONE ×3 (05:54→17:14)
[2020-06-06] MEDS ORDERED: PIPERACILLIN/TAZOBACTAM 4.5 GM VIAL IVPB ONE ×3 (05:54→17:14)
[2020-06-06] MEDS: METOPROLOL TARTRATE 5 MG/5 ML VIAL IVPUSH PRN ×3 (06:00→22:03)
[2020-06-06] MEDS: INSULIN SLIDING SCALE (NOVOLOG) 1 VIAL SQ SCH ×4 (06:16→22:13)
[2020-06-06 07:03] LABS: HEMATOCRIT 44.2 % (35.4-49); HEMOGLOBIN 14.7 GM/dL (11.7-16.9); MCH 30.5 pg (25.7-33.7); MCHC 33.3 g/dl (32.0-35.9); MEAN CELL VOLUME 91.7 fl (80-96); MEAN PLT VOLUME 9.5 fl (7.5-11.1); PLATELET COUNT 140 K/MM3 (134-434); RBC 4.82 M/mm3 (4.00-5.60); RDW 14.2 % (11.9-15.9); WHITE BLOOD COUNT 12.9 K/mm3 (4.0-10.0)
[2020-06-06 07:29] LABS: ALBUMIN 2.3 g/dl (3.4-5.0); BLOOD UREA NITROGEN 12.7 mg/dL (7-18); CALCIUM 7.7 mg/dL (8.5-10.1); MAGNESIUM 2.5 mg/dL (1.8-2.4)
[2020-06-06 07:32] LABS: CREATININE 0.3 mg/dL (0.55-1.3)
[2020-06-06 07:33] LABS: BILIRUBIN,TOTAL 0.5 mg/dL (0.2-1); TOT PROT 5.4 g/dl (6.4-8.2)
[2020-06-06 07:35] LABS: PHOSPHOROUS 2.4 mg/dL (2.5-4.9)
[2020-06-06] MEDS ORDERED: NAPH,MB-DB/K PH,MBDB POWDER PACKET PO ONE (07:51)
[2020-06-06] MEDS ORDERED: MIDAZOLAM 100 MG/100 ML MG IVPB ONE (08:54)
[2020-06-06] MEDS: ENOXAPARIN NA (PORCINE) 100 MG/1 ML DISP.SYRIN SQ SCH ×2 (09:07→22:02)
[2020-06-06] MEDS: DEXAMETHASONE SOD PHOSPHATE 4 MG/1 ML VIAL IVPUSH SCH (09:07)
[2020-06-06] MEDS: ZINC SULFATE 220 MG CAPSULE (FP) PO SCH ×2 (09:08→22:03)
[2020-06-06] MEDS: FAMOTIDINE 20 MG/50 ML IVPB 20 MG/50 ML MG IVPB SCH ×2 (09:08→22:03)
[2020-06-06] MEDS: ASCORBIC ACID 500 MG TABLET (FP) PO SCH ×2 (09:09→22:03)
[2020-06-06] MEDS: CHOLECALCIFEROL (VIT D3) 1,000 UNIT (25 MCG) TABLET PO SCH (09:09)
[2020-06-06] MEDS ORDERED: VECURONIUM BROMIDE 50 MG/50 ML VIAL IVPUSH ONE (11:03)
[2020-06-06] MEDS ORDERED: VECURONIUM BROMIDE 10 MG/10 ML VIAL IVPUSH ONE (11:45)
[2020-06-06] MEDS: FENTANYL IVPB 500 MCG/100 ML BAG IVPB SCH ×4 (12:30→23:30)
[2020-06-06] MEDS ORDERED: ACETAMINOPHEN 1000 MG/100 ML VIAL (NON FORMULARY) IVPB ONE (12:41)
[2020-06-06] MEDS: MIDAZOLAM 100 MG in SODIUM CHLORIDE 100 ML IVPB SCH ×2 (14:15→15:13)
[2020-06-06] MEDS: VECURONIUM BROMIDE 100 MG/100 ML BAG IVPB SCH ×2 (15:14→18:03)
[2020-06-06] MEDS: NOREPINEPHRINE NS PREMIX 8,000 MCG/500 ML BAG IVPB SCH (17:00)
[2020-06-07] MEDS ORDERED: PIPERACILLIN/TAZOBACTAM 4.5 GM VIAL IVPB ONE ×3 (01:05→17:19)
[2020-06-07] MEDS ORDERED: DEXTROSE 5%-WATER 100 ML IVPB ONE ×3 (01:06→17:19)
[2020-06-07] MEDS: PIPERACILLIN/TAZOB 4.5 GM 4.5 GM in DEXTROSE 5%-WATER 100 ML IVPB SCH ×3 (01:10→17:22)
[2020-06-07] MEDS: MIDAZOLAM 100 MG/100 ML MG IVPB SCH ×3 (01:10→21:56)
[2020-06-07] MEDS: METOPROLOL TARTRATE 5 MG/5 ML VIAL IVPUSH PRN ×3 (03:20→22:39)
[2020-06-07] MEDS ORDERED: ACETAMINOPHEN 1000 MG/100 ML VIAL (NON FORMULARY) IVPB ONE (05:00)
[2020-06-07] MEDS: FENTANYL IVPB 500 MCG/100 ML BAG IVPB SCH ×6 (05:00→22:02)
[2020-06-07 06:32] LABS: HEMATOCRIT 45.6 % (35.4-49); HEMOGLOBIN 15.3 GM/dL (11.7-16.9); MCH 30.6 pg (25.7-33.7); MCHC 33.5 g/dl (32.0-35.9); MEAN CELL VOLUME 91.5 fl (80-96); MEAN PLT VOLUME 8.8 fl (7.5-11.1); PLATELET COUNT 161 K/MM3 (134-434); RBC 4.99 M/mm3 (4.00-5.60); RDW 14.1 % (11.9-15.9); WHITE BLOOD COUNT 15.3 K/mm3 (4.0-10.0)
[2020-06-07] MEDS: INSULIN SLIDING SCALE (NOVOLOG) 1 VIAL SQ SCH ×4 (06:41→22:11)
[2020-06-07 07:29] LABS: ALBUMIN 2.6 g/dl (3.4-5.0); BILIRUBIN,TOTAL 0.6 mg/dL (0.2-1); BLOOD UREA NITROGEN 14.2 mg/dL (7-18); CREATININE 0.4 mg/dL (0.55-1.3); TOT PROT 5.9 g/dl (6.4-8.2)
[2020-06-07] MEDS: VECURONIUM BROMIDE 100 MG/100 ML BAG IVPB SCH ×3 (09:00→22:39)
[2020-06-07] MEDS: DEXAMETHASONE SOD PHOSPHATE 4 MG/1 ML VIAL IVPUSH SCH (09:44)
[2020-06-07] MEDS: ENOXAPARIN NA (PORCINE) 100 MG/1 ML DISP.SYRIN SQ SCH ×2 (09:45→21:56)
[2020-06-07] MEDS: ASCORBIC ACID 500 MG TABLET (FP) PO SCH ×2 (09:46→22:00)
[2020-06-07] MEDS: ZINC SULFATE 220 MG CAPSULE (FP) PO SCH ×2 (09:46→22:00)
[2020-06-07] MEDS: CHOLECALCIFEROL (VIT D3) 1,000 UNIT (25 MCG) TABLET PO SCH (09:46)
[2020-06-07] MEDS: FAMOTIDINE 20 MG/50 ML IVPB 20 MG/50 ML MG IVPB SCH ×2 (09:46→22:00)
[2020-06-07] MEDS: MIDAZOLAM 100 MG in SODIUM CHLORIDE 100 ML IVPB SCH (11:00)
[2020-06-07] MEDS: NOREPINEPHRINE NS PREMIX 8,000 MCG/500 ML BAG IVPB SCH (16:59)
[2020-06-07] MEDS: POLYETHYLENE GLYCOL 3350 119 GM BTL PO SCH (18:30)
[2020-06-08] MEDS ORDERED: PIPERACILLIN/TAZOBACTAM 4.5 GM VIAL IVPB ONE ×3 (00:56→17:20)
[2020-06-08] MEDS ORDERED: DEXTROSE 5%-WATER 100 ML IVPB ONE ×3 (00:56→17:21)
[2020-06-08] MEDS: PIPERACILLIN/TAZOB 4.5 GM 4.5 GM in DEXTROSE 5%-WATER 100 ML IVPB SCH ×3 (03:00→17:26)
[2020-06-08] MEDS: METOPROLOL TARTRATE 5 MG/5 ML VIAL IVPUSH PRN ×4 (04:08→22:56)
[2020-06-08] MEDS: FENTANYL IVPB 500 MCG/100 ML BAG IVPB SCH ×3 (04:09→18:52)
[2020-06-08] MEDS: INSULIN SLIDING SCALE (NOVOLOG) 1 VIAL SQ SCH ×4 (06:04→22:16)
[2020-06-08] MEDS: MIDAZOLAM 100 MG/100 ML MG IVPB SCH (06:41)
[2020-06-08 07:12] LABS: ALBUMIN 2.5 g/dl (3.4-5.0); BLOOD UREA NITROGEN 16.4 mg/dL (7-18); CALCIUM 7.9 mg/dL (8.5-10.1)
[2020-06-08 07:13] LABS: HEMATOCRIT 41.7 % (35.4-49); MCH 30.8 pg (25.7-33.7); MCHC 33.5 g/dl (32.0-35.9); MEAN CELL VOLUME 91.9 fl (80-96); MEAN PLT VOLUME 8.7 fl (7.5-11.1); PLATELET COUNT 157 K/MM3 (134-434); RBC 4.54 M/mm3 (4.00-5.60); RDW 14.3 % (11.9-15.9); WHITE BLOOD COUNT 14.3 K/mm3 (4.0-10.0)
[2020-06-08 07:15] LABS: CREATININE 0.3 mg/dL (0.55-1.3)
[2020-06-08 07:17] LABS: BILIRUBIN,TOTAL 0.6 mg/dL (0.2-1); TOT PROT 5.6 g/dl (6.4-8.2)
[2020-06-08] MEDS: FAMOTIDINE 20 MG/50 ML IVPB 20 MG/50 ML MG IVPB SCH ×2 (09:31→22:13)
[2020-06-08] MEDS: DEXAMETHASONE SOD PHOSPHATE 4 MG/1 ML VIAL IVPUSH SCH (09:31)
[2020-06-08] MEDS: ZINC SULFATE 220 MG CAPSULE (FP) PO SCH ×2 (09:32→22:15)
[2020-06-08] MEDS: CHOLECALCIFEROL (VIT D3) 1,000 UNIT (25 MCG) TABLET PO SCH (09:32)
[2020-06-08] MEDS: ASCORBIC ACID 500 MG TABLET (FP) PO SCH ×2 (09:33→22:14)
[2020-06-08] MEDS: ENOXAPARIN NA (PORCINE) 100 MG/1 ML DISP.SYRIN SQ SCH (09:33)
[2020-06-08] MEDS: POLYETHYLENE GLYCOL 3350 119 GM BTL PO SCH (09:54)
[2020-06-08] MEDS ORDERED: DOCUSATE SODIUM 100 MG CAPSULE (FP) PO SCH (10:00)
[2020-06-08] MEDS: DOCUSATE NA 100 MG/10 ML UNIT-DOSE CUPS PO SCH (10:24)
[2020-06-08] MEDS: NOREPINEPHRINE NS PREMIX 8,000 MCG/500 ML BAG IVPB SCH (17:16)
[2020-06-08] MEDS: VECURONIUM BROMIDE 100 MG/100 ML BAG IVPB SCH (17:18)
[2020-06-09] MEDS: VECURONIUM BROMIDE 100 MG/100 ML BAG IVPB SCH (01:48)
[2020-06-09] MEDS ORDERED: MIDAZOLAM IN 0.9 % SOD.CHLORID 1 MG/1 ML PLAST..BAG ONE ×3 (04:02→23:15)
[2020-06-09] MEDS: FENTANYL IVPB 500 MCG/100 ML BAG IVPB SCH ×2 (05:21→10:11)
[2020-06-09] MEDS: MIDAZOLAM 100 MG/100 ML MG IVPB SCH (05:21)
[2020-06-09 05:37] LABS: ARTERIAL BLD GAS O2 SATURATION 94.2 mmHg (95-98); ARTERIAL BLOOD GAS BASE EXCESS 14.6 mmol/L (-2-2); ARTERIAL BLOOD GAS PO2 73.1 mmHg (80-100); ARTERIAL BLOOD GAS pH 7.405 (7.350-7.450)
[2020-06-09 05:38] LABS: ALLENS TEST POSITIVE
[2020-06-09 05:39] LABS: VENT RATE 26
[2020-06-09 05:43] LABS: VENT MODE P A/C
[2020-06-09] MEDS: METOPROLOL TARTRATE 5 MG/5 ML VIAL IVPUSH PRN (05:59)
[2020-06-09] MEDS: INSULIN SLIDING SCALE (NOVOLOG) 1 VIAL SQ SCH ×4 (06:21→23:12)
[2020-06-09 07:22] LABS: BASO % 0.1 % (0-2.0); EOS % 0.4 % (0-4.5); HEMATOCRIT 41.8 % (35.4-49); LYMPH % 6.1 % (8-40); MCH 30.5 pg (25.7-33.7); MCHC 33.4 g/dl (32.0-35.9); MEAN CELL VOLUME 91.4 fl (80-96); MEAN PLT VOLUME 8.9 fl (7.5-11.1); MONO % 6.2 % (3.8-10.2); NEUT % 87.2 % (42.8-82.8); PLATELET COUNT 165 K/MM3 (134-434); RBC 4.57 M/mm3 (4.00-5.60); RDW 14.7 % (11.9-15.9); WHITE BLOOD COUNT 16.1 K/mm3 (4.0-10.0)
[2020-06-09 07:31] LABS: CALCIUM 8.3 mg/dL (8.5-10.1)
[2020-06-09 07:32] LABS: ALBUMIN 2.6 g/dl (3.4-5.0); BLOOD UREA NITROGEN 16.2 mg/dL (7-18); MAGNESIUM 2.1 mg/dL (1.8-2.4)
[2020-06-09 07:35] LABS: CREATININE 0.3 mg/dL (0.55-1.3); PHOSPHOROUS 2.3 mg/dL (2.5-4.9)
[2020-06-09 07:37] LABS: BILIRUBIN,TOTAL 0.8 mg/dL (0.2-1); TOT PROT 5.7 g/dl (6.4-8.2)
[2020-06-09] MEDS: FAMOTIDINE 20 MG/50 ML IVPB 20 MG/50 ML MG IVPB SCH ×2 (10:11→23:11)
[2020-06-09] MEDS: DOCUSATE NA 100 MG/10 ML UNIT-DOSE CUPS PO SCH (10:12)
[2020-06-09] MEDS: CHOLECALCIFEROL (VIT D3) 1,000 UNIT (25 MCG) TABLET PO SCH (10:12)
[2020-06-09] MEDS: ASCORBIC ACID 500 MG TABLET (FP) PO SCH ×2 (10:12→23:10)
[2020-06-09] MEDS: DEXAMETHASONE SOD PHOSPHATE 4 MG/1 ML VIAL IVPUSH SCH (10:13)
[2020-06-09] MEDS: ZINC SULFATE 220 MG CAPSULE (FP) PO SCH ×2 (10:13→23:11)
[2020-06-09] MEDS: POLYETHYLENE GLYCOL 3350 119 GM BTL PO SCH (10:13)
[2020-06-09 19:47] VITALS: BMI 31.5
[2020-06-09] MEDS ORDERED: ACETAMINOPHEN 1000 MG/100 ML VIAL (NON FORMULARY) IVPB ONE (21:27)
[2020-06-10] MEDS ORDERED: FENTANYL NS IVPB 500 MCG/100 ML BAG IVPB ONE (03:19)
[2020-06-10 06:14] LABS: ARTERIAL BLD GAS O2 SATURATION 83.7 mmHg (95-98); ARTERIAL BLOOD GAS BASE EXCESS 13.7 mmol/L (-2-2); ARTERIAL BLOOD GAS PO2 62.5 mmHg (80-100)
[2020-06-10] MEDS: INSULIN SLIDING SCALE (NOVOLOG) 1 VIAL SQ SCH ×3 (06:16→16:48)
[2020-06-10 06:24] LABS: ALLENS TEST POSITIVE
[2020-06-10 06:25] LABS: VENT MODE PC; VENT RATE 28
[2020-06-10 06:28] LABS: ARTERIAL BLOOD GAS pH 7.196 (7.350-7.450)
[2020-06-10 06:37] LABS: HEMOGLOBIN 13.4 GM/dL (11.7-16.9); MCH 30.6 pg (25.7-33.7); MCHC 32.6 g/dl (32.0-35.9); MEAN CELL VOLUME 93.9 fl (80-96); MEAN PLT VOLUME 8.4 fl (7.5-11.1); PLATELET COUNT 157 K/MM3 (134-434); RBC 4.37 M/mm3 (4.00-5.60); WHITE BLOOD COUNT 17.1 K/mm3 (4.0-10.0)
[2020-06-10 06:55] LABS: CHLORIDE 94 mmol/L (98-107); SODIUM 139 mmol/L (136-145)
[2020-06-10 07:00] LABS: ALBUMIN 2.6 g/dl (3.4-5.0); BLOOD UREA NITROGEN 12.9 mg/dL (7-18); CALCIUM 8.1 mg/dL (8.5-10.1)
[2020-06-10 07:01] LABS: GLUCOSE,RANDOM 200 mg/dL (74-106); MAGNESIUM 2.1 mg/dL (1.8-2.4)
[2020-06-10 07:03] LABS: CREATININE 0.3 mg/dL (0.55-1.3); SGOT/AST 51 U/L (15-37); SGPT/ALT 87 U/L (13-61)
[2020-06-10 07:04] LABS: BILIRUBIN,TOTAL 0.6 mg/dL (0.2-1)
[2020-06-10 07:05] LABS: TOT PROT 5.8 g/dl (6.4-8.2)
[2020-06-10 07:06] LABS: ALK PHOS 204 U/L (45-117)
[2020-06-10 07:51] LABS: ANION GAP 0 MMOL/L (8-16); CO2 > 45 mmol/L (21-32)
[2020-06-10] MEDS: INSULIN (LEVEMIR) 100 UNITS/ML UNITS SQ SCH (09:46)
[2020-06-10] MEDS: ENOXAPARIN NA (PORCINE) 100 MG/1 ML DISP.SYRIN SQ SCH ×2 (09:47→23:04)
[2020-06-10] MEDS: CHOLECALCIFEROL (VIT D3) 1,000 UNIT (25 MCG) TABLET PO SCH (09:48)
[2020-06-10] MEDS: ASCORBIC ACID 500 MG TABLET (FP) PO SCH ×2 (09:48→23:04)
[2020-06-10] MEDS: DEXAMETHASONE SOD PHOSPHATE 4 MG/1 ML VIAL IVPUSH SCH (09:48)
[2020-06-10] MEDS: FAMOTIDINE 20 MG/50 ML IVPB 20 MG/50 ML MG IVPB SCH ×2 (09:48→23:04)
[2020-06-10] MEDS: ZINC SULFATE 220 MG CAPSULE (FP) PO SCH ×2 (09:48→23:04)
[2020-06-10] MEDS: POLYETHYLENE GLYCOL 3350 119 GM BTL PO SCH (09:51)
[2020-06-10] MEDS: DOCUSATE NA 100 MG/10 ML UNIT-DOSE CUPS PO SCH (09:54)
[2020-06-10] MEDS ORDERED: MIDAZOLAM IN 0.9 % SOD.CHLORID 1 MG/1 ML PLAST..BAG ONE ×2 (10:55→20:11)
[2020-06-10] MEDS: FENTANYL IVPB 500 MCG/100 ML BAG IVPB SCH (11:05)
[2020-06-10] MEDS: ACETAMINOPHEN 325 MG TABLET (FP) PO PRN (16:43)
[2020-06-10] MEDS ORDERED: PIPERACILLIN/TAZOB 3.375 GM 3.375 GM in DEXTROSE 5%-WATER - 50 ML IVPB ONE (19:00)
[2020-06-10] MEDS ORDERED: DEXTROSE 5%-WATER - 50 ML IVPB ONE (20:03)
[2020-06-10] MEDS ORDERED: PIPERACILLIN/TAZOBACTAM 3.375 GM VIAL IVPB ONE (20:03)
[2020-06-10] MEDS ORDERED: ACETAMINOPHEN 1000 MG/100 ML VIAL (NON FORMULARY) IVPB ONE (21:42)
[2020-06-11] MEDS ORDERED: MIDAZOLAM IN 0.9 % SOD.CHLORID 1 MG/1 ML PLAST..BAG ONE (05:34)
[2020-06-11] MEDS ORDERED: PIPERACILLIN/TAZOB 3.375 GM 3.375 GM in DEXTROSE 5%-WATER - 50 ML IVPB ONE (06:00)
[2020-06-11 06:04] LABS: ARTERIAL BLD GAS O2 SATURATION 87.3 mmHg (95-98); ARTERIAL BLOOD GAS BASE EXCESS 17.1 mmol/L (-2-2); ARTERIAL BLOOD GAS PO2 55.4 mmHg (80-100); ARTERIAL BLOOD GAS pH 7.401 (7.350-7.450)
[2020-06-11 06:13] LABS: ALLENS TEST POSITIVE
[2020-06-11 06:14] LABS: VENT MODE PRESSURE CONTROL; VENT RATE 28
[2020-06-11] MEDS: INSULIN (LEVEMIR) 100 UNITS/ML UNITS SQ SCH (06:35)
[2020-06-11] MEDS: INSULIN SLIDING SCALE (NOVOLOG) 1 VIAL SQ SCH ×2 (06:37→06:46)
[2020-06-11 07:02] LABS: EOS % 0.6 % (0-4.5); HEMATOCRIT 36.8 % (35.4-49); HEMOGLOBIN 12.3 GM/dL (11.7-16.9); LYMPH % 4.3 % (8-40); MCH 31.2 pg (25.7-33.7); MCHC 33.4 g/dl (32.0-35.9); MEAN CELL VOLUME 93.3 fl (80-96); MEAN PLT VOLUME 9.2 fl (7.5-11.1); MONO % 6.3 % (3.8-10.2); NEUT % 88.8 % (42.8-82.8); PLATELET COUNT 127 K/MM3 (134-434); RBC 3.94 M/mm3 (4.00-5.60); RDW 15.1 % (11.9-15.9)
[2020-06-11 07:44] LABS: ALBUMIN 2.4 g/dl (3.4-5.0); BLOOD UREA NITROGEN 15.4 mg/dL (7-18)
[2020-06-11 07:47] LABS: CREATININE 0.4 mg/dL (0.55-1.3); PHOSPHOROUS 1.7 mg/dL (2.5-4.9)
[2020-06-11 07:48] LABS: BILIRUBIN,TOTAL 0.7 mg/dL (0.2-1)
[2020-06-11 07:49] LABS: TOT PROT 5.5 g/dl (6.4-8.2)
[2020-06-11] MEDS ORDERED: DEXTROSE 5%-WATER - 50 ML IVPB ONE (08:27)
[2020-06-11] MEDS ORDERED: PIPERACILLIN/TAZOBACTAM 3.375 GM VIAL IVPB ONE (08:27)
[2020-06-11] MEDS ORDERED: PROPOFOL 1,000,000 MCG/100 ML VIAL IVPB SCH ×2 (08:30)
[2020-06-11] MEDS: FENTANYL IVPB 500 MCG/100 ML BAG IVPB SCH (08:48)
[2020-06-11 09:02] VITALS: PULSE 149
[2020-06-11] MEDS: DOCUSATE NA 100 MG/10 ML UNIT-DOSE CUPS PO SCH (09:03)
[2020-06-11] MEDS: DEXAMETHASONE SOD PHOSPHATE 4 MG/1 ML VIAL IVPUSH SCH (09:03)
[2020-06-11] MEDS: ENOXAPARIN NA (PORCINE) 100 MG/1 ML DISP.SYRIN SQ SCH (09:03)
[2020-06-11] MEDS: CHOLECALCIFEROL (VIT D3) 1,000 UNIT (25 MCG) TABLET PO SCH (09:03)
[2020-06-11] MEDS: ASCORBIC ACID 500 MG TABLET (FP) PO SCH (09:03)
[2020-06-11] MEDS: ZINC SULFATE 220 MG CAPSULE (FP) PO SCH (09:03)
[2020-06-11] MEDS: POLYETHYLENE GLYCOL 3350 119 GM BTL PO SCH (09:04)
[2020-06-11] MEDS: FAMOTIDINE 20 MG/50 ML IVPB 20 MG/50 ML MG IVPB SCH (09:04)
[2020-06-11] MEDS: ACETAMINOPHEN 325 MG TABLET (FP) PO PRN (09:18)
[2020-06-11 10:32] VITALS: TEMP 100.6
[2020-06-11 11:39] VITALS: BP 80/56
== END 2020-06-11 11:56 | disposition expired | DRG 951 ==
LOC: JER 13:37 → JERBED 14:23 → J4S 18:34 → JICU 05-28 11:05
PROVIDERS: ADMIT Internal Medicine; ATTEND Internal Medicine
PROC: 5A09557 Assistance with Respiratory Ventilation, Greater than 96 Consecutive Hours, Continuous Positive Airway Pressure (ICD-10-PCS; 2020-05-25)
PROC: 8E0ZXY6 Isolation (ICD-10-PCS; 2020-05-25)
PROC: XW033H5 Introduction of Tocilizumab into Peripheral Vein, Percutaneous Approach, New Technology Group 5 (ICD-10-PCS; 2020-05-26)
PROC: 5A1955Z Respiratory Ventilation, Greater than 96 Consecutive Hours (ICD-10-PCS; principal; 2020-06-01)
PROC: 0BH17EZ Insertion of Endotracheal Airway into Trachea, Via Natural or Artificial Opening (ICD-10-PCS; 2020-06-01)
PROC: 02H633Z Insertion of Infusion Device into Right Atrium, Percutaneous Approach (ICD-10-PCS; 2020-06-01)
PROC: 0DH67UZ Insertion of Feeding Device into Stomach, Via Natural or Artificial Opening (ICD-10-PCS; 2020-06-01)
PROC: 3E0G76Z Introduction of Nutritional Substance into Upper GI, Via Natural or Artificial Opening (ICD-10-PCS; 2020-06-01)
DX: U07.1 COVID-19 (principal); A41.9 Sepsis, unspecified organism; J80 Acute respiratory distress syndrome; J12.82 Pneumonia due to coronavirus disease 2019; R65.21 Severe sepsis with septic shock; E87.1 Hypo-osmolality and hyponatremia; E87.2 Acidosis; E11.65 Type 2 diabetes mellitus with hyperglycemia; R94.5 Abnormal results of liver function studies; R74.01 Elevation of levels of liver transaminase levels; E66.9 Obesity, unspecified; Z68.30 Body mass index [BMI] 30.0-30.9, adult
CPT/HCPCS: 31500; 36415; 36600; 71045-TC-FY; 80048; 80053; 81003; 82248; 82550; 82728; 82803; 82962; 83036; 83605; 83615; 83735; 83880; 84100; 84484; 85025; 85027; 85379; 85610; 85730; 86140; 86769; 87040; 87070; 87077; 87086; 87186; 87205; 87804; 93005; 93010; 94002; 94640; 94660; 99285-25; C9803; G0480; J0131; J3262; U0003; U0005